=== PATIENT | male | born 1965 | race Caucasian/White ===

== ENCOUNTER 2019-01-17 05:39 | Day surgery (SDC) | payer BC, OTHER ==
[2019-01-17] MEDS ORDERED: ceFAZolin 2 GM/DEXTROSE 100 ML IV ONE (06:00)
[2019-01-17] MEDS ORDERED: LR 1,000 ML IV ONE (06:01)
[2019-01-17] MEDS ORDERED: PROPOFOL/EMULSION 500 MG/50 ML BOTTLE IV ONE (06:56)
[2019-01-17] MEDS ORDERED: fentaNYL 250 MCG/5 ML INJ ONE (06:57)
[2019-01-17] MEDS ORDERED: MIDAZOLAM 2 MG/2 ML VIAL IVP ONE (06:58)
[2019-01-17] MEDS ORDERED: BUPIVACAINE 0.5% 30 ML SDV ONE (06:59)
--- NOTE | 2019-01-17 07:00 | PDANEPAE ---
ANE History of Present Illness 53 year old healthy male for lap bilateral inguinal hernia repair and possible umbilical hernia repair. History of depression, otherwise healthy. ANE Past Medical History - Cardiovascular History Hx Hypertension: No Hx Arrhythmias: No Hx Chest Pain: No Hx Coronary Artery / Peripheral Vascular Disease: No Hx CHF / Valvular Disease: No Hx Palpitations: No Cardiovascular History Comment: MILD HEART MURMUR - TOLD IN PAST - Pulmonary History Hx COPD: No Hx Asthma/Reactive Airway Disease: No Hx Recent Upper Respiratory Infection: No Hx Oxygen in Use at Home: No Hx Sleep Apnea: Yes Sleep Apnea Screening Result - Last Documented: Positive - Neurologic History Hx Cerebrovascular Accident: No Hx Seizures: No Hx Dementia: No - Endocrine History Hx Diabetes: No - Renal History Hx Renal Disorders: No - Liver History Hx Hepatic Disorders: No - Neurological & Psychiatric Hx Hx Neurological and Psychiatric Disorders: Yes Neurological / Psychiatric History Comment: CYMBALTA - ANXIETY / DEPRESSION - Cancer History Hx Cancer: No - Congenital Disorder History Hx Congenital Disorders: No - GI History Hx Gastrointestinal Disorders: No Gastrointestinal History Comment: OCCAS INDIGESTION - Other Health History Other Health History: NEG - Chronic Pain History Chronic Pain: Yes (MILD BACK PAIN) - Surgical History Prior Surgeries: HERNIA CHILDHOOD. CYST ANKLE REMOVED ANE Review of Systems Review of systems is: negative Review of Systems: - Exercise capacity METS (RN): 6 METS ANE Patient History - Allergies Allergies/Adverse Reactions: Sulfa (Sulfonamide Antibiotics) Allergy (Verified 01/16/19 12:30) Rash walnut Allergy (Verified 01/16/19 12:30) - Home Medications Home Medications: Bupropion HCl 01/16/19 [Last Taken 01/17/19 05:30] Cymbalta 01/16/19 [Last Taken 01/17/19 05:30] Herbals/Supplements -Info Only 01/16/19 [Last Taken 01/15/19] - NPO status NPO Since - Liquids (Date): 01/17/19 NPO Since - Liquids (Time): 05:15 NPO Since - Solids (Date): 01/16/19 NPO Since - Solids (Time): 21:00 - Smoking Hx Smoking Status: Never smoked - Family Anes Hx Family Hx Anesthesia Complications: NONE ANE Labs/Vital Signs - Vital Signs Blood Pressure: 127/82 Heart Rate: 51 Respiratory Rate: 16 O2 Sat (%): 94 Height: 187.96 cm Weight: 88.451 kg ANE Physical Exam - Airway Neck exam: FROM Mallampati Score: Class 2 Mouth exam: normal dental/mouth exam - Pulmonary Pulmonary: no respiratory distress - Cardiovascular Cardiovascular: regular rate and rhythym - ASA Status ASA Status: II ANE Anesthesia Plan Anesthesia Plan: general endotracheal anesthesia
--- NOTE | 2019-01-17 07:01 | PDHPUP ---
History & Physical Update H&P update statement: This history and physical update is based on an assessment of the patient which was completed after admission or registration (within 24 hours), but prior to the surgery/procedure. H&P update: H&P reviewed & patient examined, no change in patient's condition since H&P completed
[2019-01-17] MEDS ORDERED: ALBUTEROL 3 ML DEYVIAL IH PRN (07:36)
[2019-01-17] MEDS ORDERED: NALOXONE HCL 0.4 MG/ML INJ IVP PRN (07:36)
[2019-01-17] MEDS ORDERED: PHENYLEPHRINE HCL 100 MCG/ML SYR IVP PRN (07:36)
[2019-01-17] MEDS ORDERED: oxyCODONE IR 5 MG TAB PO PRN (07:36)
[2019-01-17] MEDS ORDERED: LR 500 ML IV PRN (07:36)
[2019-01-17] MEDS ORDERED: DEXAMETHASONE 4 MG/ML VIAL IVP PRN (07:36)
[2019-01-17] MEDS ORDERED: fentaNYL 100 MCG/2 ML INJ IVP PRN (07:36)
[2019-01-17] MEDS ORDERED: LABETALOL HCL 5 MG/ML 20 ML MDV IVP PRN (07:36)
[2019-01-17] MEDS ORDERED: ROCURONIUM 50 MG/5 ML VIAL ONE ×2 (07:44)
[2019-01-17] MEDS ORDERED: ePHEDrine SULFATE 25 MG/5 ML SYR ONE (07:52)
[2019-01-17] MEDS ORDERED: SUGAMMADEX SODIUM 200 MG/2 ML VIAL IVP ONE (08:06)
--- NOTE | 2019-01-17 08:25 | POSTOPPROG ---
Post Op Note Date of Operation: 01/17/19 Surgeon: Anup Castillo Shank Turner: Marcela Anesthesiologist: Roma Anesthesia: GET(General Endotracheal) Pre-op Diagnosis: BIH, umbilical hernia Post-op Diagnosis: same Indication: same Procedure: Lap BIH repair with mesh, open umbilical hernia repair without mesh Findings: Bilateral indirect inguinal hernias. Small umbilical defect Inf/Abcess present in the surg proc area at time of surgery?: No Depth: Deep Incisional (Fascial) EBL: Minimal Bowel Protocol: N/A Clean Closure Performed: N/A
[2019-01-17] MEDS ORDERED: ONDANSETRON 4 MG/2 ML VIAL ONE (08:44)
[2019-01-17] MEDS ORDERED: PROMETHAZINE HCL 25 MG/ML INJ ONE (08:46)
[2019-01-17] MEDS: PROMETHAZINE HCL 25 MG/ML INJ IVP PRN ×2 (08:49→09:03)
[2019-01-17] MEDS ORDERED: ONDANSETRON 4 MG/2 ML VIAL IVP PRN (09:32)
[2019-01-17 12:40] VITALS: BP 105/60
[2019-01-17] MEDS ORDERED: oxyCODONE IR 5 MG TAB ONE (12:48)
== END 2019-01-17 13:00 | disposition home or self-care (01) ==
LOC: FSGY 05:39
PROVIDERS: ATTEND Surgery
PROC: 0YUA4JZ Supplement Bilateral Inguinal Region with Synthetic Substitute, Percutaneous Endoscopic Approach (ICD-10-PCS; principal; 2019-01-17 07:15)
PROC: 0WQF4ZZ Repair Abdominal Wall, Percutaneous Endoscopic Approach (ICD-10-PCS; principal; 2019-01-17 07:15)
DX: K40.20 Bilateral inguinal hernia, without obstruction or gangrene, not specified as recurrent (principal); K42.9 Umbilical hernia without obstruction or gangrene; F32.9 Major depressive disorder, single episode, unspecified
CPT/HCPCS: C1727; C1781; J0690; J2250; J2405; J2550; J2704; J3010